=== PATIENT | male | born 1955 | race Caucasian/White ===

== ENCOUNTER → 2019-07-20 | Outpatient (CLI) | payer BC ==
[2015-08-05 10:24] VITALS: BP 158/73
[~2019-07-20] MED LIST: ASPI-630 PO; TRIA1CAP3 PO
--- NOTE | 2019-07-20 14:09 | RAD ---
MRA of the brain without contrast 07/20/2019 Clinical History: Chronic headaches. Technique: Using 3-D time of flight techniques, a MRA of the major arterial structures surrounding the unga of [place] was performed. Findings: No previous studies are available for comparison. MRA images of the anterior and posterior circulations are within normal limits. The P1 segment of the right posterior cerebral artery is hypoplastic. This is a normal variation. No area of stenosis or occlusion is seen. No intracranial aneurysm is seen. Impression: Negative study. Electronically signed by: Rey Gamboa MD (07/20/2019 2:06 PM) [id number]
== END | disposition home or self-care (01) ==
LOC: MRI 10:52
PROVIDERS: ATTEND Family Medicine
DX: G44.229 Chronic tension-type headache, not intractable (principal); Z82.49 Family history of ischemic heart disease and other diseases of the circulatory system; Q28.3 Other malformations of cerebral vessels
CPT/HCPCS: 70544

== ENCOUNTER → 2021-04-15 | Outpatient (CLI) | payer BC ==
[2015-08-05 10:24] VITALS: BP 158/73
[2021-04-15 14:04] LABS: BASO % 1 % (0-3); EOS # 0.1 x10^3/uL (0.0-0.7); EOS % 2 % (0-3); HEMATOCRIT 44.6 % (39.0-53.0); HEMOGLOBIN 14.5 g/dL (13.0-17.5); LYMPH # 1.2 x10^3/uL (1.0-4.8); LYMPH % 45 % (24-48); MEAN CORPUSCULAR HEMOGLOBIN 29 pg (25-35); MEAN CORPUSCULAR HGB CONC 33 g/dL (31-37); MEAN CORPUSCULAR VOLUME 90 fL (79-100); MONO # 0.3 x10^3/uL (0.0-1.1); MONO % 12 % (0-9); NEUT # 1.1 x10^3/uL (1.8-7.7); NEUT % 41 % (31-73); PLATELET COUNT 161 x10^3/uL (140-400); RED BLOOD COUNT 4.98 x10^6/uL (4.30-5.70); RED CELL DISTRIBUTION WIDTH 17.4 % (11.5-14.5); WHITE BLOOD COUNT 2.7 x10^3/uL (4.0-11.0)
[2021-04-15 14:19] LABS: CALCIUM 9.1 mg/dL (8.5-10.1); CREATININE 1.3 mg/dL (0.7-1.3); GFR 55.2
[2021-04-15 14:26] LABS: ALBUMIN 3.7 g/dL (3.4-5.0); ALBUMIN/GLOBULIN RATIO 0.9 (1.0-1.7); TOTAL BILIRUBIN 0.3 mg/dL (0.2-1.0); TOTAL PROTEIN 7.8 g/dL (6.4-8.2)
[2021-04-16 16:10] LABS: KAPPA FREE 39.4 mg/L (3.3-19.4); KAPPA LAMBDA RATIO 2.04 (0.26-1.65); LAMBDA FREE 19.3 mg/L (5.7-26.3)
[2021-04-17 16:12] LABS: ALBUM 3.8 g/dL (2.9-4.4); ALPHA 1 0.2 g/dL (0.0-0.4); ALPHA 2 0.7 g/dL (0.4-1.0); BETA 1.2 g/dL (0.7-1.3); GAMMA 1.6 g/dL (0.4-1.8); PROTEIN TOTAL 7.5 g/dL (6.0-8.5)
[2021-04-17 22:08] LABS: ANA INTERP Positive (.)
== END ==
LOC: ONCLAB 13:22
PROVIDERS: ATTEND Internal Medicine Hematology & Oncology
DX: D72.819 Decreased white blood cell count, unspecified (principal)
CPT/HCPCS: 80053; 82525; 82607; 82746; 83520; 83921; 84165; 85025; 85651; 86038